=== PATIENT | male | born 1960 | race Caucasian/White ===

== ENCOUNTER 2019-12-11 23:18 | Emergency (ER) | payer OTHER ==
[2019-12-11 23:58] VITALS: BP 134/88; PULSE 85; TEMP 98.8; BMI 29.2
[2019-12-12] MEDS ORDERED: CLINDAMYCIN HCL 150 MG CAPSULE (FP) PO ONE (00:17)
[2019-12-12] MEDS ORDERED: DIPHTH,PERTUSS(ACELL),TET 0.5 ML DISP.SYRIN IM ONE ×2 (00:17→00:51)
--- NOTE | 2019-12-12 00:17 | PDOC ---
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 Pt was working when the back hitch came down with a puncture of the L arm. Pt has a v shaped 4cm laceration to the L forearm. No active bleeding. Pt with FROM of the arm, elbow, hand, brisk cap refill of the hand. pulses intact, sensation intact, pulses intact. Tetanus is not utd. - Physicial Exam PE: 12/12/19 00:20 Ext: L forearm with v shaped laceration to the L forearm. No active bleeding. Pulses intact. Sensation intact, FROM of the forearm, wrist, hand. Muscle strength intact. Lac is distal to the elbow. - Medical Decision Making 12/12/19 00:23 a/p: 59yo male with L arm laceration -will need suture repair -will update tetanus -will give abx -wound will be washed out with betadine -resident to perform suture repair -will monitor and reassess Discharge - Discharge Information Problems reviewed: Yes Clinical Impression/Diagnosis: Laceration of forearm Condition: Stable Disposition: HOME - Admission No - Additional Discharge Information Prescriptions: Clindamycin [Cleocin -] 450 mg PO Q8H #63 capsule - Follow up/Referral Referrals: Juwan Tan MD [Staff Physician] - - Patient Discharge Instructions Patient Printed Discharge Instructions: DI for Laceration Repair Additional Instructions: Please keep the wound clean and dry. Please apply topical antibiotic ointment to the wound twice a day. Please take all the antibiotics as prescribed. Your sutures will need to be removed in 7 days. Please have the wound checked in 48 hours - either at urgent care, the ER, or your Primary care physician. You may wash the wound with soap and water and pat dry after at least 24 hours. Please keep the arm elevated when possible. Please return to the ER with any further concerns or complaints. - Post Discharge Activity
--- NOTE | 2019-12-12 00:50 | PDOC ---
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 Pt was working when the back hitch came down with a puncture of the L arm. Pt has a v shaped 4cm laceration to the L forearm. No active bleeding. Denies arm numbness, able to move fingers. Unknown last tetanus. Not on AC Past History - Medical History Allergies/Adverse Reactions: Allergies Allergy/AdvReac Type Severity Reaction Status Date / Time No Known Allergies Allergy Verified 12/11/19 23:57 Home Medications: Ambulatory Orders Clindamycin [Cleocin -] 450 mg PO Q8H #63 capsule 12/12/19 - Psycho-Social/Smoking History Smoking History: Never smoked Information on smoking cessation initiated: No - Substance Abuse Hx (Audit-C & DAST Scrn) How often the patient has a drink containing alcohol: Never Score: In Men: 4 or > Positive; In Women: 3 or > Positive: 0 Screen Result (Pos requires Nsg. Audit-10AR): Negative In the last yr the pt used illegal drug/Rx for NonMed reason: No Score: Yes response is considered Positive: 0 Screen Result (Positive result requires Nsg. DAST-10): Negative Review of Systems - Review of Systems Constitutional: No: Chills, Fever HEENTM: No: Eye Pain, Ear Discharge Respiratory: No: Cough, Shortness of Breath Cardiac (ROS): No: Chest Pain, Lightheadedness ABD/GI: No: Nausea, Vomiting : No: Burning, Dysuria Musculoskeletal: No: Back Pain, Joint Pain Integumentary: No: Bruising, Dryness Neurological: No: Headache, Seizure Psychiatric: No: Anxiety, Depression Endocrine: No: Intolerance to Cold, Intolerance to Heat Hematologic/Lymphatic: No: Anemia, Blood Clots *Physical Exam - Vital Signs Last Vital Signs Temp Pulse Resp BP Pulse Ox 98.8 F 85 20 134/88 96 12/11/19 23:54 12/11/19 23:54 12/11/19 23:54 12/11/19 23:54 12/11/19 23:54 - Physical Exam General Appearance: Yes: Nourished, Appropriately Dressed, Mild Distress HEENT: positive: EOMI, NICK, Normal Voice, Hearing Grossly Normal. negative: Scleral Icterus (R), Scleral Icterus (L) Respiratory/Chest: positive: Lungs Clear, Normal Breath Sounds. negative: Chest Tender, Respiratory Distress Cardiovascular: positive: Regular Rhythm, Regular Rate, S1, S2. negative: Murmur Extremity: positive: Other (L plantar forearm with 4cm v shaped laceration. No active bleeding. 2+ radial pulses. Sensation intact, Intact ROM and 5/5 strength elbow/wrist flex/extension, ok sign/finger-5th digit/lumbricals ) Integumentary: positive: Normal Color, Warm Neurologic: positive: Fully Oriented, Alert, Normal Mood/Affect, Normal Response Medical Decision Making - Medical Decision Making 12/12/19 00:50 59yM with 4cm L forearm laceration. Neurovascular intact. Given tetanus, clindamycin Wound thoroughly irrigated, cleaned, closed w 7x 4'0 prolene sutures w/o complications DC home w suture care instructions, clindamycin, f/u Discharge - Discharge Information Problems reviewed: Yes Clinical Impression/Diagnosis: Laceration of forearm Qualifiers: Encounter type: initial encounter Laterality: left Qualified Code(s): S51.812A - Laceration without foreign body of left forearm, initial encounter Condition: Improved Disposition: HOME - Additional Discharge Information Prescriptions: Clindamycin [Cleocin -] 450 mg PO Q8H #63 capsule - Follow up/Referral Referrals: Juwan Tan MD [Staff Physician] - - Patient Discharge Instructions Patient Printed Discharge Instructions: DI for Laceration Repair Additional Instructions: You had 7 sutures placed to close your wound Please keep the wound clean and dry for the first 24 hours. You may wash the wo und with soap and water and pat dry after at least 24 hours. Please apply topical antibiotic ointment to the wound twice a day. Please take the prescribed Clindamycin as directed. Go to an urgent care, ER, or your primary care physician to remove your sutures in 7 days. Your sutures will need to be removed in 7 days. Please have the wound checked in 48 hours - either at urgent care, the ER, or your Primary care physician. Please return to the ER with any further concerns or complaints. - Post Discharge Activity
[2019-12-12] MEDS ORDERED: CLINDAMYCIN HCL 150 MG CAPSULE (FP) ONE (00:51)
== END 2019-12-12 01:01 | disposition home or self-care (01) ==
LOC: JER 23:18
PROC: 3E0234Z Introduction of Serum, Toxoid and Vaccine into Muscle, Percutaneous Approach (ICD-10-PCS; principal; 2019-12-11)
DX: S51.812A Laceration without foreign body of left forearm, initial encounter (principal)
CPT/HCPCS: 90715; 99284-25